=== PATIENT | female | born 1985 | race Caucasian/White ===

== ENCOUNTER 2018-10-16 10:39 | Emergency (ER) | payer SELFPAY, MEDICAID ==
[2018-10-16] MEDS: KETOROLAC 30 MG INJ IM (11:36)
[2018-10-16] MEDS: LIDOCAINE 1% (MPF) 5 ML VIAL INFIL (12:47)
== END 2018-10-16 15:17 | disposition home or self-care (01) ==
LOC: FTE 10:39
DX: K64.5 Perianal venous thrombosis (principal); F17.210 Nicotine dependence, cigarettes, uncomplicated
CPT/HCPCS: 46083; 81025; 96372; 99284-25